=== PATIENT | male | born 1975 | race Caucasian/White ===

== ENCOUNTER 2016-11-30 00:22 | Emergency (ER) | payer OTHER ==
[2016-11-30 04:31] LABS: HEMOGLOBIN 16.4 gm/dl (14.0-17.5); RED BLOOD COUNT 5.63 M/UL (4.20-5.50); WHITE BLOOD COUNT 11.7 K/UL (4.5-11.0)
[2016-11-30 05:00] LABS: BUN/CREATININE RATIO 29 (0-10)
== END 2016-11-30 07:58 | disposition home or self-care (01) ==
LOC: ER1 00:22
PROVIDERS: Student in an Organized Health Care Education/Training Program
DX: R07.9 Chest pain, unspecified (principal); R06.02 Shortness of breath; R00.1 Bradycardia, unspecified
CPT/HCPCS: 36415; 71020; 80053; 82550; 82553; 83874; 84484; 85025; 93005; 96374; 99285

== ENCOUNTER → 2017-02-26 | Outpatient (CLI) | payer OTHER | LOC: KOH-I 13:23 | DX: M66.272 Spontaneous rupture of extensor tendons, left ankle and foot (principal) | CPT/HCPCS: 73721 ==

== ENCOUNTER → 2020-11-18 | Outpatient (CLI) | payer OTHER ==
[~2020-11-18] MED LIST: BACTROBAN NASAL1 G1; CLEOCIN HCL300 MG PO; IBUPROFEN600 MG PO; IBUPROFEN800 MG PO; MECLIZINE HCL25 MG PO; ONDANSETRON ODT4 MG SL; ZESTRIL/PRINIVI10 MG PO
== END ==
LOC: RAD 12:01
DX: R06.02 Shortness of breath (principal)
CPT/HCPCS: 71046

== ENCOUNTER → 2021-02-04 | Outpatient (CLI) | payer OTHER | LOC: KOH-I 15:18 | DX: M25.572 Pain in left ankle and joints of left foot (principal); M19.072 Primary osteoarthritis, left ankle and foot | CPT/HCPCS: 73610 ==

== ENCOUNTER 2021-02-26 12:38 | Emergency (ER) | payer OTHER ==
[~2021-02-26 12:38] MED LIST changes: -MECLIZINE HCL25 MG PO; -ONDANSETRON ODT4 MG SL
[2021-02-26 14:21] LABS: HEMOGLOBIN 15.6 gm/dl (14.0-17.5); RED BLOOD COUNT 5.3 M/UL (4.20-5.50); WHITE BLOOD COUNT 8.5 K/UL (4.5-11.0)
[2021-02-26 14:47] LABS: BUN/CREATININE RATIO 15 (0-10)
[2021-02-26] MEDS ORDERED: ONDANSETRON ODT4 MG SL (16:14)
[2021-02-26] MEDS ORDERED: MECLIZINE HCL25 MG PO (16:14)
== END 2021-02-26 16:22 | disposition home or self-care (01) ==
LOC: ER1 12:38
PROVIDERS: Physician Assistant
DX: R42 Dizziness and giddiness (principal); R11.2 Nausea with vomiting, unspecified; I10 Essential (primary) hypertension; Z79.899 Other long term (current) drug therapy
CPT/HCPCS: 70450; 80053; 80307; 81001; 82550; 82553; 83690; 83874; 84484; 85025; 93005; 96374; 99284; G0480; J2405; J7030

== ENCOUNTER → 2021-03-20 | Outpatient (CLI) | payer OTHER ==
[~2021-03-20] MED LIST changes: +MECLIZINE HCL25 MG PO; +ONDANSETRON ODT4 MG SL
[2021-03-20 15:10] LABS: BORDETELLA PARAPERTUSSIS Not Detected (Not Detectd); BORDETELLA PERTUSSIS Not Detected (Not Detectd); CHLAMYDIA PNEUMONIAE Not Detected (Not Detectd); CORONAVIRUS HKU1 Not Detected (Not Detectd); CORONAVIRUS NL63 Not Detected (Not Detectd); CORONOAVIRUS 229E Not Detected (Not Detectd); HUMAN METAPNEUMOVIRUS Not Detected (Not Detectd); HUMAN RHINOVIRUS/ENTEROVIRUS Not Detected (Not Detectd); INFLUENZA A Not Detected (Not Detectd); INFLUENZA B Not Detected (Not Detectd); MYCOPLASMA PNEUMONIAE Not Detected (Not Detectd); PARAINFLUENZA VIRUS 1 Not Detected (Not Detectd); PARAINFLUENZA VIRUS 2 Not Detected (Not Detectd); PARAINFLUENZA VIRUS 3 Not Detected (Not Detectd); PARAINFLUENZA VIRUS 4 Not Detected (Not Detectd); RESPIRATORY SYNCYTIAL VIRUS Not Detected (Not Detectd)
[2021-03-20 16:30] LABS: CORONAVIRUS OC43 DETECTED (Not Detectd); SARS-CoV-2 NOT DETECTED (Not Detectd)
== END ==
LOC: LAB 14:52
PROVIDERS: Physician Assistant
DX: J06.9 Acute upper respiratory infection, unspecified (principal); Z20.822 Contact with and (suspected) exposure to COVID-19
CPT/HCPCS: 36415; 87633

== ENCOUNTER → 2021-04-16 | Outpatient (CLI) | payer OTHER | LOC: RAD 09:15 | DX: M25.562 Pain in left knee (principal) | CPT/HCPCS: 73562 ==

== ENCOUNTER → 2021-05-21 | Outpatient (CLI) | payer OTHER | LOC: KOH-I 14:55 | DX: R10.9 Unspecified abdominal pain (principal); K76.9 Liver disease, unspecified | CPT/HCPCS: 74176 ==